=== PATIENT | male | born 1970 | race Caucasian/White ===

== ENCOUNTER 2022-11-15 14:42 | Emergency (ER) | payer MEDICARE, SELFPAY ==
[2022-11-15 15:01] VITALS: BP 121/84; PULSE 94; RESP 18; TEMP 37.3; O2SAT 93; BMI 30.7
--- NOTE | 2022-11-15 15:51 | ED.GENADULT ---
HPI - General Adult General Time Seen by Provider: 15:51 Date Seen: 11/15/22 Chief complaint: Laceration/Wound Stated complaint: L index finger lac Time Seen by Provider: 11/15/22 15:50 Source: patient Mode of arrival: ambulatory Limitations: no limitations History of Present Illness HPI narrative: Antony is a 52 year old male with no real past medical history of muscular dystrophy emergency department with a finger laceration. Patient states was using a laboratory apparatus glass grinder when a piece of sharp metal came across and cut his left index finger, he sustained a laceration on the 1st part of the finger, he has full range of motion, he is not on blood thinners, bleeding was controlled, he is unsure on his tetanus. Related Data Home Medications Medication Instructions Recorded Confirmed No Known Home Medications 11/15/22 11/15/22 Allergies Allergy/AdvReac Type Severity Reaction Status Date / Time No Known Drug Allergies Allergy Verified 11/15/22 15:04 Review of Systems Status of ROS: Reports: 10 or more systems reviewed and unremarkable except as noted in History and below PFSH PFSH Social History Smoking Status: Heavy tobacco smoker What tobacco products do you use: cigarettes Smoking packs per day: 0.5 Smoking cigarettes per day: 10.0 Years smoked: 20 Smoking pack-years: 10.00 Do you use any of these nicotine containing products: None Second hand tobacco smoke exposure: No How often do you have a drink containing alcohol: 4 or more times a week How many standard drinks containing alcohol do you have on a typical day: 5 or 6 AUDIT-C Alcohol total score: 6 Non-prescribed substance use: marijuana (any form) Exam Narrative: Exam Narrative: NAD: Nontoxic in appearance HEENT: Pupils equal round reactive to light Neck: Supple full range of motion Lungs: Clear to auscultation bilaterally Heart: Normal sinus rhythm S1-S2 Extremities: Left index finger, 2.5 cm laceration, lateral PIP, full range of motion extension and flexion. CMS intact Neuro: Alert awake and oriented x3 Const: Vital Signs, click to edit/add: Vital Signs - 24 hr 11/15/22 15:01 Temperature 99.1 F Pulse Rate [Pulse Oximeter] 94 Respiratory Rate 18 Blood Pressure [Ri ght Upper Arm] 121/84 Pulse Oximetry 93 Oxygen Delivery Me thod Room Air Course Course Hospital Course: Workup will include laceration repair, please see procedure note, patient up-to-date on his tetanus status. Laceration repair complete patient did well, plan would be to discharge, removal of sutures in 7-10 days. Vital Signs Vital signs: Initial Vital Signs Temperature 99.1 F 11/15/22 15:01 Temperature Source Temporal Artery Scan 11/15/22 15:01 Pulse Rate 94 11/15/22 15:01 Respiratory Rate 18 11/15/22 15:01 Blood Pressure 121/84 11/15/22 15:01 Blood Pressure Mean 96 11/15/22 15:01 Blood Pressure Position Supine 11/15/22 15:01 Pulse Oximetry 93 11/15/22 15:01 Oxygen Delivery Method Room Air 11/15/22 15:01 Vital Signs Temperature 99.1 F 11/15/22 15:01 Pulse Rate 94 11/15/22 15:01 Respiratory Rate 18 11/15/22 15:01 Blood Pressure 121/84 11/15/22 15:01 Pulse Oximetry 93 11/15/22 15:01 Oxygen Delivery Method Room Air 11/15/22 15:01 Temperature 99.1 F 11/15/22 15:01 Pulse Rate 94 11/15/22 15:01 Respiratory Rate 18 11/15/22 15:01 Blood Pressure 121/84 11/15/22 15:01 Pulse Oximetry 93 11/15/22 15:01 Oxygen Delivery Method Room Air 11/15/22 15:01 Discharge Plan Discharge Clinical Impression: Finger laceration Patient Disposition: Home, Self-Care Condition: Improved Instructions: Finger Laceration (ED) Additional Instructions: To have sutures removed in the next 7-10 days. Return if any worsening redness, swelling or discharge. Activity Level: No Restrictions Prescriptions: No Action No Known Home Medications Follow Up/Referrals: Provider,Not a Local [Primary Care Provider] - Stand Alone Forms: [facility] Info Instructions Procedures Laceration Laceration 1: Pre procedure diagnosis: left index finger laceration Post procedure diagnosis: same Written consent by: patient Site marking: site marked Verification/time out: correct patient Name of person performing procedure: Mat Hernández Site: hand Side (If applicable): left Size (cm): 3.5 Description: linear Depth: simple, single layer Local Anesthetic: lidocaine 1% and with epi Pre-repair: wound explored Skin layer closed with: nylon Size (cm): 4-0 Number of sutures: 5 Technique: simple, interrupted
[2022-11-15] MEDS: TETANUS/DIPHTH/PERTUSSIS 0.5 ML SYRINGE IM (16:51)
== END 2022-11-15 17:10 | disposition home or self-care (01) ==
LOC: ED 17:02
PROVIDERS: Emergency Provider Student in an Organized Health Care Education/Training Program
DX: S61.211A Laceration without foreign body of left index finger without damage to nail, initial encounter (principal)
CPT/HCPCS: 12002; 90471; 90715; 99283; 99284